=== PATIENT | male | born 1990 | race Hispanic/Latino ===

== ENCOUNTER 2021-07-31 06:43 | Emergency (ER) | payer BC ==
[2021-07-31] MEDS: TAMSULOSIN HCL 0.4 MG CAP.ER.24H PO SCH ×2 (07:59→10:26)
[2021-07-31] MEDS ORDERED: 0.9%NACL 1000ML 1,000 ML IV ONE (08:00)
[2021-07-31] MEDS ORDERED: MORPHINE 4 MG SYG IVP ONE (08:00)
[2021-07-31] MEDS ORDERED: KETOROLAC 30MG VIAL (30MG/ML) IVP ONE (08:00)
[2021-07-31] MEDS ORDERED: ONDANSETRON 4MG INJ IVP ONE (08:00)
[2021-07-31 08:12] LABS: BASOPHILS % (AUTO) 0.5 % (0.0-5.0); EOSINOPHILS % (AUTO) 0.9 % (0.0-8.0); HEMATOCRIT 45.9 % (42-54); LYMPHOCYTES % (AUTO) 33.1 % (21.0-51.0); MEAN CORPUSCULAR HEMOGLOBIN 27.2 pg (27.0-33.0); MEAN CORPUSCULAR HGB CONC 31.4 g/dL (32.0-36.0); MEAN CORPUSCULAR VOLUME 86.6 fL (79-99); MONOCYTES % (AUTO) 5.8 % (3.0-13.0); NEUTROPHILS % (AUTO) 59.3 % (40.0-77.0); PLATELET COUNT (AUTO) 373 K/uL (130-400); RED CELL DISTRIBUTION WIDTH 12.9 % (11.0-15.5); WHITE BLOOD COUNT (AUTO) 10.4 K/uL (4.8-10.8)
[2021-07-31 08:13] LABS: APPEARANCE,URINE Cloudy (CLEAR); BILIRUBIN,URINE Negative (NEGATIVE); COLOR,URINE Yellow (YELLOW); GLUCOSE, URINE (UA) Negative (NEGATIVE); KETONES,URINE Negative (NEGATIVE); LEUKOCYTE ESTERASE ,URINE Negative (NEGATIVE); NITRATE,URINE Negative (NEGATIVE); OCCULT BLOOD,URINE Large (NEGATIVE); PROTEIN,URINE Trace mg/dL (NEGATIVE); UROBILINOGEN,URINE 0.2 mg/dL (0.2-1.0)
[2021-07-31 08:23] LABS: CREATININE 1.1 mg/dL (0.5-1.5); POTASSIUM 4.2 mmol/L (3.5-5.1)
[2021-07-31 08:27] LABS: RBC,URINE 26-50 /HPF (0-1)
[2021-07-31 08:28] LABS: BACTERIA,URINE None Seen /HPF (None Seen); SQUAMOUS EPITHELIAL CELL,UR 0-2 /HPF (0-2); WBC,URINE 0-1 /HPF (0-1)
[2021-07-31 08:28] LABS: ALBUMIN 3.8 g/dL (3.5-5.0); BILIRUBIN,TOTAL 0.2 mg/dL (0.2-1.0); TOTAL PROTEIN, SERUM 8.8 g/dL (6.0-8.3)
[2021-07-31] MEDS ORDERED: MORPHINE 2 MG SYG IVP ONE (11:00)
[2021-07-31] MEDS ORDERED: TAMS-1 PO (12:53)
[2021-07-31] MEDS ORDERED: ACET1TAB25 PO (12:53)
[2021-07-31] MEDS ORDERED: IBUP-2070 PO (12:53)
[2021-07-31 13:37] VITALS: BP 134/78
== END 2021-07-31 13:59 | disposition home or self-care (01) ==
LOC: EDH 06:43
DX: N20.0 Calculus of kidney (principal); E86.0 Dehydration; I10 Essential (primary) hypertension; Z79.1 Long term (current) use of non-steroidal anti-inflammatories (NSAID)
CPT/HCPCS: 36415; 74176; 80053; 81001; 85025; 96361; 96374; 96375; 96376; 99284; J1885; J2270; J2405

== ENCOUNTER 2024-04-11 22:37 | Emergency (ER) | payer BC ==
[~2024-04-11] VITALS: Ht 182.9 cm; Wt 171.0 kg
[~2024-04-11 22:37] MED LIST: ACET-2079 PO; IBUP-2070 PO; TAMS-1 PO
[2024-04-11] MEDS ORDERED: AMOX1TAB16 PO (22:54)
[2024-04-11] MEDS ORDERED: KETO10TA2 PO (22:54)
[2024-04-11] MEDS: cefTRIAXone 1G VIAL IM ONE (23:15)
[2024-04-11] MEDS: ketOROlac 30MG VIAL (30MG/ML) IM ONE (23:15)
[2024-04-11] MEDS: dexaMETHasone SOD PHOSPHATE 4 MG/ML 1ML VIAL IM ONE (23:15)
[2024-04-11 23:30] VITALS: BP 130/78; PULSE 80; RESP 16; TEMP 98.3; O2SAT 99
== END 2024-04-11 23:42 | disposition home or self-care (01) ==
LOC: EDH 22:37
DX: K04.7 Periapical abscess without sinus (principal); I10 Essential (primary) hypertension; Z79.899 Other long term (current) drug therapy
CPT/HCPCS: 99284; 96372 ×3; J1100; J0696; J1885